=== PATIENT | male | born 1965 | race Caucasian/White ===

== ENCOUNTER 2018-03-15 19:12 | Emergency (ER) | payer BC ==
[2018-03-15 19:24] VITALS: TEMP 98.1; BMI 23.3
[2018-03-15] MEDS ORDERED: KETOROLAC TROMETHAMINE 30 MG/1 ML VIAL IVPUSH ONE (20:40)
[2018-03-15] MEDS ORDERED: SODIUM CHLORIDE 0.9% 500 ML INFUS.BAG IV ONE (20:40)
[2018-03-15 20:41] LABS: BASO % 0.4 % (0-2.0); EOS % 0.6 % (0-4.5); HEMATOCRIT 40.4 % (35.4-49); HEMOGLOBIN 13.7 GM/dL (11.7-16.9); LYMPH % 9.1 % (8-40); MEAN CELL VOLUME 85.3 fl (80-96); MEAN PLT VOLUME 8.1 fl (7.5-11.1); MONO % 8.3 % (3.8-10.2); NEUT % 81.6 % (42.8-82.8); PLATELET COUNT 174 K/MM3 (134-434); RBC 4.73 M/mm3 (4.00-5.60); RDW 12.7 % (11.9-15.9); WHITE BLOOD COUNT 11.8 K/mm3 (4.0-10.0)
[2018-03-15] MEDS ORDERED: ONDANSETRON 4 MG/2 ML VIAL IVPUSH ONE (20:41)
[2018-03-15 20:42] LABS: URINE APPEARANCE CLOUDY; URINE BILIRUBIN NEGATIVE (<2.0 mg/dL); URINE COLOR DKYELLOW; URINE GLUCOSE (UA) NEGATIVE (NEGATIVE); URINE KETONE NEGATIVE (NEGATIVE); URINE NITRITE NEGATIVE (NEGATIVE)
[2018-03-15] MEDS ORDERED: ONDANSETRON 4 MG/2 ML VIAL ONE (20:42)
[2018-03-15] MEDS ORDERED: KETOROLAC TROMETHAMINE 30 MG/1 ML VIAL ONE (20:42)
[2018-03-15 20:47] LABS: URINE LEUK ESTERASE 3+ (NEGATIVE); URINE PROTEIN 2+ (NEGATIVE)
[2018-03-15 20:48] LABS: URINE BACTERIA MANY /hpf (NONE SEEN); URINE MUCUS MANY
--- NOTE | 2018-03-15 20:48 | PDOC ---
History of Present Illness - General Chief Complaint: Pain, Acute Stated Complaint: Nausea/Vomiting Time Seen by Provider: 03/15/18 19:58 History Source: Patient Exam Limitations: No Limitations - History of Present Illness Initial Comments: 03/15/18 20:43 Patient is a 52-year-old male with history of heart bypass surgery, hypertension , wrist fracture with pins, umbilical hernia repair c/o of left flank pain since 4:30 this evening. States pain was sudden onset was 5/10 initially but progressively worsened. States the pain now is constant, stabbing, 8/10 associated with nausea and vomiting. He has had no prior episodes of this pain, no history of kidney stones. PMD: Dr. Ramos PMHX: as above PSocHx: ALL: PCN GENERAL/CONSTITUTIONAL: [No fever or chills. No weakness. No weight change.] HEAD, EYES, EARS, NOSE AND THROAT: [No change in vision. No ear pain or discharge. No sore throat.] CARDIOVASCULAR: [No chest pain or shortness of breath.] RESPIRATORY: [No cough, wheezing, or hemoptysis.] GASTROINTESTINAL: [No nausea, vomiting, diarrhea or constipation. No rectal bleeding.] GENITOURINARY: [No dysuria, frequency, or change in urination.] MUSCULOSKELETAL: [No joint or muscle swelling or pain. No neck or back pain.] SKIN AND BREASTS: [No rash or easy bruising.] NEUROLOGIC: [No headache, vertigo, loss of consciousness, or loss of sensation.] PSYCHIATRIC: [No depression or anxiety.] ENDOCRINE: [No increased thirst. No abnormal weight change.] HEMATOLOGIC/LYMPHATIC: [No anemia, easy bleeding, or history of blood clots.] ALLERGIC/IMMUNOLOGIC: [No hives or skin allergy. No latex allergy.] GENERAL: [The patient is awake, alert, and fully oriented, in moderate painful distress.] HEAD: [Normal with no signs of trauma.] EYES: [Pupils equal, round and reactive to light, extraocular movements intact, sclera anicteric, conjunctiva clear.] ENT: [Ears normal, nares patent, oropharynx clear without exudates. Moist mucous membranes.] NECK: [Normal range of motion, supple without lymphadenopathy, JVD, or masses.] LUNGS: [Breath sounds equal, clear to auscultation bilaterally. No wheezes, and no crackles.] HEART: [Regular rate and rhythm, normal S1 and S2 without murmur, rub.] ABDOMEN: [Soft, nontender, normoactive bowel sounds. No guarding, no rebound. No masses, LCVAT.] EXTREMITIES: [Normal range of motion, no edema. No clubbing or cyanosis. No cords, erythema, or tenderness.] NEUROLOGICAL: [Cranial nerves II through XII grossly intact. Normal speech, normal gait.] PSYCH: [Normal mood, normal affect.] Past History - Past Medical History Allergies/Adverse Reactions: Allergies Allergy/AdvReac Type Severity Reaction Status Date / Time Penicillins Allergy Verified 03/15/18 19:25 soy Allergy Verified 03/15/18 19:25 Home Medications: Ambulatory Orders Levofloxacin [Levaquin] 500 mg PO DAILY #7 tablet 03/15/18 Naproxen [Naprosyn] 500 mg PO BID #20 tablet 03/15/18 Oxycodone HCl/Acetaminophen [Percocet 5/325 -] 1 tab PO Q4H #20 tablet MDD 6 08/31 Tamsulosin HCl [Flomax] 0.4 mg PO DAILY #7 cap.er.24h 03/15/18 Cardiac Disorders: No CVA: No COPD: No DVT: No HTN: Yes - Surgical History Cardiac Surgery: Yes - Suicide/Smoking/Psychosocial Hx Smoking History: Never smoked Have you smoked in the past 12 months: No Information on smoking cessation initiated: No Hx Alcohol Use: No Drug/Substance Use Hx: No Substance Use Type: None *Physical Exam - Vital Signs Last Vital Signs Temp Pulse Resp BP Pulse Ox 98.1 F 83 20 178/113 97 03/15/18 19:22 03/15/18 19:22 03/15/18 19:22 03/15/18 19:22 03/15/18 19:22 ED Treatment Course - LABORATORY CBC & Chemistry Diagram: 03/15/18 20:33 03/15/18 20:33 - ADDITIONAL ORDERS Additional order review: 03/15/18 20:33 RBC 4.73 MCV 85.3 MCHC 34.0 RDW 12.7 MPV 8.1 Neutrophils % 81.6 Lymphocytes % 9.1 Monocytes % 8.3 Eosinophils % 0.6 Basophils % 0.4 - RADIOLOGY Radiology Studies Ordered: Category Date Time Status ABDOMEN & PELVIS CT W/O CONTR [CT] Stat CT Scan 03/15/18 20:41 Ordered Medical Decision Making - Medical Decision Making 03/15/18 20:43 Patient is a 52-year-old male with history of heart bypass surgery, hypertension , wrist fracture with pins, umbilical hernia repair c/o of left flank pain since 4:30 this evening consistent with renal colic. Labs, IV fluids, pain meds, CT noncontrast abdomen and pelvis Reassess Patient given Toradol with no relief of pain so morphine 4 mg IV given. 03/15/18 22:13 Patient Full Name: TELLO RIOS Patient Accession No: [id number] Patient : 1965 Reason for Exam: Lt flank pain Referring Physician: Patient Name: GABRIEL JAVED THIS IS A PRELIMINARY REPORT FROM [facility] DATE OF SERVICE: 2018-03-15 21:18:38 IMAGES: [id number] EXAM: CT abdomen and pelvis without IV contrast. Clinical indication: Left flank pain. There are no prior studies available for comparison. Technique: Axial CT images of the abdomen and pelvis were obtained followed by coronal and sagittal reformats. Findings: There is a small right-sided diaphragmatic hernia. The remainder of the visualized portions of the lower thorax are within normal limits. There is no free intra-abdominal gas or fluid. The liver, gallbladder, adrenals, pancreas, spleen are unremarkable, given the limitations of CT. There is a 0.3 cm stone in the left ureterovesicular junction causing mild left- sided hydronephrosis and hydroureter. In addition, within the midportion of the left kidney there is a 0.3 cm nonobstructive renal calculus. Within the midportion of the right kidney there may be a tiny 0.1 cm nonobstructive renal calculus. The bilateral kidneys are otherwise unremarkable, given the limitations of an unenhanced CT. There are no enlarged abdominal or pelvic lymph nodes, by size criteria. There is some aortoiliac atherosclerotic vascular calcifications. The urinary bladder is otherwise unremarkable. The appendix is normal. There is some mild colonic diverticulosis, without evidence of diverticulitis. The remainder the bowel is unremarkable. There is a mild scoliosis convex right secondary to degenerative changes. The remainder the visualized bony structures are unremarkable. Impression: 1. 0.3 cm stone obstructing at the left ureterovesicular junction giving mild left-sided hydronephrosis. 2. Single 0.3 cm left-sided nonobstructive renal calculus with questionable tiny 0.1 severe right-sided nonobstructive renal calculus. 3. Colonic diverticulosis, without evidence of diverticulitis. Individualized dose optimization techniques were used for this CT. THIS DOCUMENT HAS BEEN ELECTRONICALLY SIGNED Matthias Álvarez MD 03/15/2018 21:06 MERCEDEZ M.D. Please call [facility] [phone] ([phone]) with questions. INTERPRETING RADIOLOGIST: Matthias Álvarez MD Electronically Signed: Mar 15, 2018 10:08PM EDT CT scan noted will give Levaquin IV since he has ALLERGIES to penicillin. 03/15/18 23:35 Patient is pain-free, tolerating by mouth. Will send prescription to pharmacy for flomax, percocet, naproxen, zofran He has a urologist at [facility] Dr. Jarrett which he will contact Friday. I discussed the physical exam findings, ancillary test results and final diagnoses with the patient. I answered all of the patient's questions. The patient was satisfied with the care received and felt comfortable with the discharge plan and treatment plan. The Patient agrees to follow up with the primary care physician within 24-72 hours. *DC/Admit/Observation/Transfer Diagnosis at time of Disposition: Renal colic UTI (urinary tract infection) Qualifiers: Urinary tract infection type: site unspecified Hematuria presence: without hematuria Qualified Code(s): N39.0 - Urinary tract infection, site not specified - Discharge Dispostion Disposition: HOME Condition at time of disposition: Stable - Prescriptions Prescriptions: Levofloxacin [Levaquin] 500 mg PO DAILY #7 tablet Naproxen [Naprosyn] 500 mg PO BID #20 tablet Oxycodone HCl/Acetaminophen [Percocet 5/325 -] 1 tab PO Q4H #20 tablet MDD 6 Tamsulosin HCl [Flomax] 0.4 mg PO DAILY #7 cap.er.24h - Referrals - Patient Instructions Printed Discharge Instructions: DI for Kidney Stones, DI for Urinary Tract Infection (UTI) Additional Instructions: Your Discharge Instructions: You must call primary care physician within 24 hours to arrange follow-up. Return to the Emergency Department with any new, persistent or worsening symptoms, for fever, chills, SOB, dizziness or any other concerning changes that may occur. - Post Discharge Activity
[2018-03-15] MEDS ORDERED: morphine CARPU-JECT 4 MG/1 ML DISP.SYRIN IVPUSH ONE (20:59)
[2018-03-15 21:02] LABS: ALBUMIN 3.9 g/dl (3.4-5.0); ALK PHOS 73 U/L (45-117); ANION GAP 8 MMOL/L (8-16); BILIRUBIN,TOTAL 0.6 mg/dL (0.2-1.0); BLOOD UREA NITROGEN 23 mg/dL (7-18); CALCIUM 8.7 mg/dL (8.5-10.1); CHLORIDE 102 mmol/L (98-107); CO2 27 mmol/L (21-32); GLUCOSE,RANDOM 99 mg/dL (74-106); POTASSIUM 4.6 mmol/L (3.5-5.1); SGOT/AST 32 U/L (15-37); SGPT/ALT 28 U/L (12-78); SODIUM 137 mmol/L (136-145); TOT PROT 7.3 g/dl (6.4-8.2)
[2018-03-15] MEDS ORDERED: morphine SULFATE 4 MG/ML VIAL ONE (21:02)
[2018-03-15 22:51] VITALS: BP 126/72; PULSE 71
[2018-03-15] MEDS ORDERED: TAMSULOSIN HCL 0.4 MG CAP.ER.24H (FP) PO ONE (23:20)
[2018-03-15] MEDS ORDERED: TAMSULOSIN HCL 0.4 MG CAP.ER.24H (FP) ONE (23:43)
== END 2018-03-16 | disposition home or self-care (01) ==
LOC: JER 19:12
PROC: 3E03329 Introduction of Other Anti-infective into Peripheral Vein, Percutaneous Approach (ICD-10-PCS; principal; 2018-03-15)
PROC: 3E033GC Introduction of Other Therapeutic Substance into Peripheral Vein, Percutaneous Approach (ICD-10-PCS; 2018-03-15)
PROC: 3E0333Z Introduction of Anti-inflammatory into Peripheral Vein, Percutaneous Approach (ICD-10-PCS; 2018-03-15)
PROC: 3E033NZ Introduction of Analgesics, Hypnotics, Sedatives into Peripheral Vein, Percutaneous Approach (ICD-10-PCS; 2018-03-15)
DX: N13.2 Hydronephrosis with renal and ureteral calculous obstruction (principal); K57.90 Diverticulosis of intestine, part unspecified, without perforation or abscess without bleeding; N39.0 Urinary tract infection, site not specified; I25.10 Atherosclerotic heart disease of native coronary artery without angina pectoris; Z95.1 Presence of aortocoronary bypass graft; I10 Essential (primary) hypertension
CPT/HCPCS: 36415; 74176-TC; 80053; 81003; 81015; 85025; 99282-25